=== PATIENT | female | born 1940 ===

== ENCOUNTER 2022-03-30 07:02 | Outpatient (CLI) | payer OTHER | END 2022-03-30 07:04 | disposition home or self-care (01) | LOC: LAB 07:02 | PROVIDERS: ATTEND Internal Medicine | DX: I10 Essential (primary) hypertension (principal); M54.50 Low back pain, unspecified; E03.9 Hypothyroidism, unspecified; E78.9 Disorder of lipoprotein metabolism, unspecified; E55.9 Vitamin D deficiency, unspecified; E66.9 Obesity, unspecified; G62.9 Polyneuropathy, unspecified; N39.0 Urinary tract infection, site not specified; Z12.31 Encounter for screening mammogram for malignant neoplasm of breast; Z13.820 Encounter for screening for osteoporosis; Z12.11 Encounter for screening for malignant neoplasm of colon ==